=== PATIENT | female | born 1985 | race Caucasian/White ===

== ENCOUNTER → 2016-02-25 | Outpatient (CLI) | payer OTHER ==
[2016-02-25 20:38] LABS: ALBUMIN 3.9 GM/DL (3.2-5.2); ALBUMIN/GLOBULIN RATIO 1.11 (1.00-1.93); ALKALINE PHOSPHATASE 46 U/L (45-117); ALT/SGPT 19 U/L (12-78); ANION GAP 9 MEQ/L (8-16); AST/SGOT 10 U/L (15-37); BILIRUBIN,TOTAL 0.3 MG/DL (0.2-1.0); BLOOD UREA NITROGEN 13 MG/DL (7-18); CALCIUM LEVEL 8.6 MG/DL (8.5-10.1); CARBON DIOXIDE LEVEL 27 MEQ/L (21-32); CHLORIDE LEVEL 104 MEQ/L (98-107); FERRITIN 3 NG/ML (8-252); FREE T4 0.93 NG/DL (0.76-1.46); GLOMERULAR FILTRATION RATE > 60.0 (>60); GLUCOSE, FASTING 98 MG/DL (70-105); POTASSIUM SERUM 4.2 MEQ/L (3.5-5.1); SODIUM LEVEL 140 MEQ/L (136-145); TOTAL PROTEIN 7.4 GM/DL (6.4-8.2)
== END ==
LOC: M WUC 16:56
PROVIDERS: ATTEND Family Medicine
DX: Z00.00 Encounter for general adult medical examination without abnormal findings (principal)

== ENCOUNTER → 2016-09-19 | Outpatient (REF) | payer OTHER ==
[2016-09-19 15:35] LABS: MICROSCOPIC INDICATED? MAN NO (NO)
[2016-10-01 00:07] LABS: DOPAMINE 658 ug/24 hr (0-510); EPINEPHRINE 6 ug/24 hr (0-20); METANEPHRINE URINE 108 ug/24 hr (45-290); NOREPINEPHRINE 108 ug/24 hr (0-135); NOREPINEPHRINE TOTAL URINE 17 ug/L (Undefined); NORMETANEPHRINE URINE 177 ug/24 hr (82-500)
== END ==
LOC: M LAB REF 15:04
PROVIDERS: ATTEND Internal Medicine Cardiovascular Disease
DX: R31.0 Gross hematuria (principal)